=== PATIENT | male | born 2005 | race Two or more races ===

== ENCOUNTER 2025-01-07 02:11 | Emergency (ER) | payer SELFPAY ==
[~2025-01-07] VITALS: Ht 167.6 cm; Wt 58.0 kg
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
[2025-01-07 02:42] VITALS: BP 110/65; PULSE 85; RESP 20; TEMP 98.3; O2SAT 95
== END 2025-01-07 02:44 ==
LOC: ER 02:11
DX: F10.129 Alcohol abuse with intoxication, unspecified (principal); V89.2XXA Person injured in unspecified motor-vehicle accident, traffic, initial encounter; Y93.89 Activity, other specified; Y92.89 Other specified places as the place of occurrence of the external cause; Y99.8 Other external cause status; Y90.9 Presence of alcohol in blood, level not specified